=== PATIENT | male | born 1970 | race Caucasian/White ===

== ENCOUNTER 2017-03-29 05:50 | Emergency (ER) | payer OTHER ==
[2017-03-29 05:57] VITALS: BP 137/88
--- NOTE | 2017-03-29 06:07 | ED Physician Documentation ---
PD HPI MALE - Stated complaint Stated Complaint: UNABLE TO URINATING - Chief complaint Chief Complaint: UTI - History obtained from History obtained from: Patient - History of Present Illness Timing - onset: How many weeks ago (1.5) Timing - duration: Weeks (1.5) Timing - details: Gradual onset Pain level max: 6 Pain level now: 6 Associated symptoms: Dysuria, Urinary frequency, Unable to urinate. No: Hematuria, Discharge, Genital sore / lesion, Testiclar pain, Scrotal swelling, Abdominal pain PD HPI MALE CONTRIB FACTORS: Sexually active. No: Exposed to STD, Indwelling catheter Similar symptoms before: Has not had sx before Recently seen: Not recently seen Review of Systems Ten Systems: 10 systems reviewed and negative Constitutional: denies: Fever, Chills Ears: denies: Ear pain Throat: denies: Sore throat Respiratory: denies: Cough, Wheezing GI: denies: Abdominal Pain, Nausea, Vomiting, Diarrhea Skin: denies: Rash Musculoskeletal: reports: Back pain (states low back/rectal pain.). denies: Neck pain PD PAST MEDICAL HISTORY - Past Medical History Past Medical History: Yes Cardiovascular: Hypertension, High cholesterol GI: GERD - Past Surgical History Past Surgical History: No - Present Medications Home Medications: Ambulatory Orders Medication Instructions Recorded Confirmed Aspirin 03/29/17 Atorvastatin [Lipitor] 03/29/17 Ciprofloxacin HCl [Cipro] 500 mg PO BID #84 tablet 03/29/17 Lisinopril/Hydrochlorothiazide 03/29/17 [Lisinopril-Hctz 10-12.5 mg Tab] - Allergies Allergies/Adverse Reactions: Allergies Allergy/AdvReac Type Severity Reaction Status Date / Time penicillin V Allergy Unknown Verified 03/29/17 05:56 - Social History Does the pt smoke?: No Smoking Status: Never smoker Does the pt drink ETOH?: No Does the pt have substance abuse?: No - Immunizations Immunizations are current?: Yes - POLST Patient has POLST: No PD ED PE NORMAL - Vitals Vital signs reviewed: Yes - General General: Alert and oriented X 3, No acute distress, Well developed/nourished - HEENT HEENT: Moist mucous membranes - Neck Neck: Supple, no meningeal sign - Cardiac Cardiac: RRR, Strong equal pulses - Respiratory Respiratory: No respiratory distress, Clear bilaterally - Abdomen Abdomen: Soft, Non tender, Non distended - Rectal Rectal: Other (+ TTP along the prostate.) - Back Back: No CVA TTP, No spinal TTP (to palpation or percussion) - Derm Derm: Warm and dry - Neuro Neuro: Alert and oriented X 3 - Psych Psych: Normal mood, Normal affect Results - Vitals Vitals: Vital Signs - 24 hr 03/29/17 05:53 Temperature 37.1 C Heart Rate 75 Respiratory 18 Rate Blood Pressure 137/88 H O2 Saturation 98 Oxygen O2 Source Room air - Labs Labs: Laboratory Tests 03/29/17 06:06 Urine Color YELLOW Urine Clarity CLEAR Urine pH 6.0 Ur Specific [place] <=1.005 Urine Protein NEGATIVE Urine Glucose (UA) NEGATIVE Urine Ketones NEGATIVE Urine Occult Blood NEGATIVE Urine Nitrite NEGATIVE Urine Bilirubin NEGATIVE Urine Urobilinogen 0.2 (NORMAL) Ur Leukocyte Esterase NEGATIVE Ur Microscopic Review NOT INDICATED Urine Culture Comments NOT INDICATED PD MEDICAL DECISION MAKING - ED course Complexity details: reviewed results, re-evaluated patient, considered differential, d/w patient ED course: Patient with symptoms and exam c/w acute prostatitis. Will place on cipro for home and close follow up with PCP. Pt is very well appearing, non-toxic. Afebrile. No evidence of sepsis. Patient counseled regarding signs and symptoms for which I believe and urgent re-evaluation would be necessary. Patient with good understanding of and agreement to plan and is comfortable going home at this time This document was made in part using voice recognition software. While efforts are made to proofread this document, sound alike and grammatical errors may occur. Departure - Departure Disposition: 01 Home, Self Care Clinical Impression: Prostatitis Qualifiers: Prostatitis type: acute Qualified Code(s): N41.0 - Acute prostatitis Condition: Good Instructions: ED Prostatitis Follow-Up: your,doctor in 1 week [Other] Prescriptions: Ciprofloxacin HCl [Cipro] 500 mg PO BID #84 tablet Comments: Take all antibiotics until gone. Return if you worsen including fevers, chills, or worsening symptoms.
[2017-03-29 06:28] LABS: BILIRUBIN,URINE NEGATIVE (NEGATIVE)
[2017-03-29 06:30] LABS: UA CHARGE (STRIP ONLY) YES; UR CULTURE IF IND NOT INDICATED
[2017-03-29] MEDS ORDERED: CIPROFLOXACIN 250 MG TABLET PO STA (06:38)
[2017-03-29] MEDS ORDERED: CIPROFLOXACIN 250 MG TABLET PO ONE (06:43)
== END 2017-03-29 06:47 | disposition home or self-care (01) ==
LOC: ED 05:50
DX: N41.0 Acute prostatitis (principal); I10 Essential (primary) hypertension; E78.00 Pure hypercholesterolemia, unspecified; K21.9 Gastro-esophageal reflux disease without esophagitis; Z79.82 Long term (current) use of aspirin
CPT/HCPCS: 51798; 81001; 81003; 87086; 87491; 87591; 99283

== ENCOUNTER 2017-03-29 21:47 | Emergency (ER) | payer OTHER ==
[2017-03-29] MEDS ORDERED: SODIUM CHLORIDE 0.9% 1,000 ML IV ONE (22:30)
--- NOTE | 2017-03-29 22:30 | ED Physician Documentation ---
History of Present Illness - Stated complaint Stated Complaint: FEELS FAINT - Chief complaint Chief Complaint: Cardiac - History obtained from History obtained from: Patient - History of Present Illness Timing: Today Pain level max: 0 Pain level now: 0 Improved by: nothing Worsened by: nothing - Additonal information Additional information: Patient was seen here earlier today and diagnosed with prostatitis. Started Cipro. Has had diarrhea twice today. Started to feel anxious, lightheaded, dizzy. Decided to come to the emergency department for evaluation. Currently feels normal. No fevers. No dyspnea. No vomiting. No abdominal pain currently. Review of Systems Ten Systems: 10 systems reviewed and negative Constitutional: denies: Fever, Chills Ears: denies: Ear pain Nose: denies: Rhinorrhea / runny nose, Congestion Throat: denies: Sore throat Cardiac: denies: Chest pain / pressure Respiratory: denies: Cough GI: reports: Diarrhea. denies: Abdominal Pain, Nausea, Vomiting, Hematemesis, Bloody / black stool Skin: denies: Rash Musculoskeletal: denies: Neck pain, Back pain Neurologic: denies: Focal weakness, Numbness, Syncope, Seizure, Confused, Headache PD PAST MEDICAL HISTORY - Past Medical History Cardiovascular: Hypertension, High cholesterol GI: GERD - Past Surgical History Past Surgical History: No - Present Medications Home Medications: Ambulatory Orders Medication Instructions Recorded Confirmed Aspirin 81 mg PO DAILY 03/29/17 03/29/17 Atorvastatin [Lipitor] 10 mg PO DAILY 03/29/17 03/29/17 Ciprofloxacin HCl [Cipro] 500 mg PO BID #84 tablet 03/29/17 03/29/17 Lisinopril/Hydrochlorothiazide 1 tab PO DAILY 03/29/17 03/29/17 [Lisinopril-Hctz 10-12.5 mg Tab] - Allergies Allergies/Adverse Reactions: Allergies Allergy/AdvReac Type Severity Reaction Status Date / Time penicillin V Allergy Unknown Verified 03/29/17 22:09 - Social History Does the pt smoke?: No Smoking Status: Never smoker Does the pt drink ETOH?: No Does the pt have substance abuse?: No - Immunizations Immunizations are current?: Yes - POLST Patient has POLST: No PD ED PE NORMAL - Vitals Vital signs reviewed: Yes - General General: Alert and oriented X 3, No acute distress, Well developed/nourished - HEENT HEENT: PERRL, Moist mucous membranes, Pharynx benign - Neck Neck: Supple, no meningeal sign, No adenopathy, No bruit - Cardiac Cardiac: RRR, Strong equal pulses - Respiratory Respiratory: No respiratory distress, Clear bilaterally - Abdomen Abdomen: Soft, Non tender, Non distended - Derm Derm: Warm and dry - Extremities Extremities: No edema, No calf tenderness / cord - Neuro Neuro: Alert and oriented X 3, director plans 2-12 intact, No motor deficit, No sensory deficit, Normal speech - Psych Psych: Normal mood, Normal affect Results - Vitals Vitals: Vital Signs - 24 hr 03/29/17 03/29/17 03/29/17 22:01 22:51 23:15 Temperature 37.0 C Heart Rate 94 74 75 Respiratory 20 12 16 Rate Blood Pressure 177/110 H 112/83 H 110/74 O2 Saturation 98 98 98 Oxygen O2 Source Room air - EKG (time done) 2225 Rate: Rate (enter#) (78) Rhythm: NSR Ashley: Normal Intervals: Prolonged [place] QRS: Normal Ischemia: Normal ST segments Computer interpretation: Agree with computer - Labs Labs: Laboratory Tests 03/29/17 03/29/17 22:40 22:40 WBC 7.9 RBC 5.00 Hgb 15.8 Hct 44.7 MCV 89.4 MCH 31.7 H MCHC 35.4 RDW 13.1 Plt Count 240 MPV 7.2 L Neut # 4.1 Lymph # 2.8 [place] # 0.7 Eos # 0.1 Baso # 0.2 H Absolute Nucleated RBC 0.00 Nucleated RBCs 0.0 Sodium 138 Potassium 3.8 Chloride 99 L Carbon Dioxide 32 Anion Gap 7.0 BUN 19 Creatinine 1.1 Estimated GFR (MDRD) 72 L Glucose 98 Calcium 10.2 Total Bilirubin 1.6 H AST 29 ALT 48 Alkaline Phosphatase 79 Total Protein 7.9 Albumin 4.4 Globulin 3.5 Albumin/Globulin Ratio 1.3 Lipase 26 PD MEDICAL DECISION MAKING - ED course Complexity details: reviewed old records, reviewed results, re-evaluated patient , considered differential, d/w patient ED course: Patient is a 46-year-old male being treated for prostatitis. Did have diarrhea today. Then felt lightheaded and dizzy. Asymptomatic here. Tolerating p.o. without difficulty. Not orthostatic. No evidence of cardiac arrhythmia. Normal EKG. Normal lab testing. We will continue his medications as previously prescribed and follow-up with his doctor. Patient counseled regarding signs and symptoms for which I believe and urgent re-evaluation would be necessary. Patient with good understanding of and agreement to plan and is comfortable going home at this time This document was made in part using voice recognition software. While efforts are made to proofread this document, sound alike and grammatical errors may occur. Departure - Departure Disposition: 01 Home, Self Care Clinical Impression: Diarrhea Qualifiers: Diarrhea type: unspecified type Qualified Code(s): R19.7 - Diarrhea, unspecified Condition: Good Instructions: ED Diarrhea Viral Follow-Up: your,doctor in 1 week [Other] Comments: Return if you worsen. Continue the antibiotics at home. Discharge Date/Time: 03/29/17 23:35
[2017-03-29 22:52] LABS: BASOPHILS # (AUTO) 0.2 10^3/uL (0.0-0.1); BASOPHILS % (AUTO) 2.2 %; EOSINOPHILS # (AUTO) 0.1 10^3/uL (0.0-0.7); EOSINOPHILS % (AUTO) 1.6 %; HCT - HEMATOCRIT 44.7 % (42.0-52.0); HGB - HEMOGLOBIN 15.8 g/dL (14.0-18.0); LYMPHOCYTES # (AUTO) 2.8 10^3/uL (1.5-3.5); LYMPHOCYTES % (AUTO) 36.2 %; MEAN CORPUSCULAR HEMOGLOBIN 31.7 pg (27.0-31.0); MEAN CORPUSCULAR HGB CONC 35.4 g/dL (32.0-36.0); MEAN CORPUSCULAR VOLUME 89.4 fL (80.0-94.0); MEAN PLATELET VOLUME 7.2 fL (7.4-11.4); MONOCYTES # (AUTO) 0.7 10^3/uL (0.0-1.0); MONOCYTES % (AUTO) 8.3 %; NEUTROPHILS # (AUTO) 4.1 10^3/uL (1.5-6.6); NEUTROPHILS % (AUTO) 51.7 %; RED CELL DISTRIBUTION WIDTH 13.1 % (12.0-15.0); UNCORRECTED WHITE BLOOD COUNT 7.9 x10^3/uL; WHITE BLOOD COUNT 7.9 x10^3/uL (4.8-10.8)
[2017-03-29 23:05] LABS: ALBUMIN/GLOBULIN RATIO 1.3 (1.0-2.2); BILIRUBIN,TOTAL 1.6 mg/dL (0.2-1.0); CALCIUM 10.2 mg/dL (8.5-10.3); CREATININE 1.1 mg/dL (0.6-1.2); POTASSIUM 3.8 mmol/L (3.5-5.0); TOTAL PROTEIN 7.9 g/dL (6.7-8.2)
[2017-03-29 23:23] VITALS: BP 110/74
== END 2017-03-29 23:35 | disposition home or self-care (01) ==
LOC: ED 21:47
DX: R19.7 Diarrhea, unspecified (principal); N41.0 Acute prostatitis; R30.0 Dysuria; M54.5 Low back pain; I10 Essential (primary) hypertension; E78.00 Pure hypercholesterolemia, unspecified; K21.9 Gastro-esophageal reflux disease without esophagitis; Z79.82 Long term (current) use of aspirin
CPT/HCPCS: 36415; 51798; 80053; 81003; 83690; 85025; 87491; 87591; 93005; 93010; 96360; 99283; 99284; A9270; 81001; 87086